=== PATIENT | male | born 1950 | race Caucasian/White ===

== ENCOUNTER 2023-04-05 09:00 | Outpatient (CLI) | payer MEDICARE, SELFPAY ==
[2023-04-05 10:01] LABS: Prostate Specific Antigen 13.7 ng/mL (< OR = 4.0)
== END 2023-04-05 09:01 | disposition home or self-care (01) ==
LOC: CHSLAB 09:07
PROVIDERS: PCP Nurse Practitioner Family; Visit Provider Urology
DX: R97.20 Elevated prostate specific antigen [PSA] (principal)
CPT/HCPCS: 36415; 84153

== ENCOUNTER 2023-12-08 11:02 | Outpatient (CLI) | payer MEDICARE, SELFPAY ==
[2023-12-08 12:22] LABS: Alanine Aminotransferase 30 U/L (16-63); Albumin Level 3.8 g/dL (3.4-5.0); Alkaline Phosphatase 44 U/L (46-116); Anion Gap 8 mmol/L (4-12); Aspartate Amino Transferase 17 U/L (15-37); Bilirubin,Total 0.9 mg/dL (0.00-1.00); Blood Urea Nitrogen 16 mg/dL (7-18); Calcium 8.8 mg/dL (8.5-10.1); Carbon Dioxide 29 mmol/L (21-32); Chloride 104 mmol/L (98-108); Estimated Glomerular Filt Rate 57; Glucose 120 mg/dL (70-99); Osmolality Calculated 294 mOsm/kg (285-295); Potassium 4.4 mmol/L (3.5-5.1); Prostate Specific Antigen 19.1 ng/mL (< OR = 4.0); Sodium 141 mmol/L (136-145); Total Protein 7.1 g/dL (6.4-8.2)
== END 2023-12-08 11:03 | disposition home or self-care (01) ==
LOC: CHSLAB 11:05
PROVIDERS: PCP Nurse Practitioner Family; Visit Provider Urology
DX: R97.20 Elevated prostate specific antigen [PSA] (principal)
CPT/HCPCS: 36415; 80053; 84153

== ENCOUNTER 2024-02-08 08:51 | Outpatient (CLI) | payer MEDICARE, SELFPAY ==
[2024-02-08 09:59] LABS: Prostate Specific Antigen 15.6 ng/mL (< OR = 4.0)
== END 2024-02-08 08:52 | disposition home or self-care (01) ==
LOC: CHSLAB 08:54
PROVIDERS: PCP Nurse Practitioner Family; Visit Provider Urology
DX: R97.20 Elevated prostate specific antigen [PSA] (principal); N40.1 Benign prostatic hyperplasia with lower urinary tract symptoms
CPT/HCPCS: 36415; 84153

== ENCOUNTER 2024-09-07 11:43 | Outpatient (CLI) | payer MEDICARE, SELFPAY ==
[2024-09-07 12:39] LABS: Alanine Aminotransferase 20 U/L (16-63); Albumin Level 3.8 g/dL (3.4-5.0); Alkaline Phosphatase 47 U/L (46-116); Anion Gap 7 mmol/L (4-12); Aspartate Amino Transferase 12 U/L (15-37); Bilirubin,Total 1.1 mg/dL (0.00-1.00); Blood Urea Nitrogen 19 mg/dL (7-18); Calcium 8.7 mg/dL (8.5-10.1); Carbon Dioxide 29 mmol/L (21-32); Chloride 104 mmol/L (98-108); Estimated Glomerular Filt Rate 54; Glucose 170 mg/dL (70-99); Osmolality Calculated 296 mOsm/kg (285-295); Potassium 4.4 mmol/L (3.5-5.1); Prostate Specific Antigen 14.9 ng/mL (< OR = 4.0); Sodium 140 mmol/L (136-145); Total Protein 6.6 g/dL (6.4-8.2)
--- OUTSIDE RECORDS SUMMARY | 2024-09-08 04:43 | XMS_ITS | Data Portability ---
[facility] Address [address] [place] [address] Care Team Providers Care Seed Sorter Name Role Phone YANCY ZUNIGA Primary Care Provider Unavailabl e Assessment No assessment recorded. 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 [address], [place], [address], 08/01/2022 08:17:09 CBC w/ auto diff 2021 022 [facility], [address] [place] [address], [facility] [address], [place], [address], 08/01/2022 08:17:09 CMP, serum or plasma 2021 022 [facility], [address] [place] [address], [facility] 2, [place], [address], 08/01/2022 08:17:08 lipid panel, serum 2021 022 [facility], [address] [facility], [facility] [address], [address], 08/01/2022 08:17:07 PSA, serum or plasma 2022 023 [facility], [address] [facility], [facility] 2, [place], [address], 02/10/2023 04:09:17 CBC w/ auto diff 2022 023 [facility], [address] [place] [address], [facility] 2, [place], [address], 02/09/2023 20:09:42 CMP, serum or plasma 2022 023 [facility], [address] [place] [address], [place], [address], 02/09/2023 20:09:42 lipid panel, serum 2022 023 [facility], [address] [place] [address] 2, [place], [address], 02/09/2023 20:09:41 PSA, total, serum or plasma 2022 023 [facility], [address] [place] [address], [place], [address], 08/06/2023 08:20:30 CBC w/ auto diff 2022 023 [facility], [address] [place] [address], [facility] 2, [place], [address], 08/06/2023 08:20:30 CMP, serum or plasma 2022 023 [facility], [address] [place] [address], [place], [address], 08/06/2023 08:20:29 lipid panel, serum 2022 023 [facility], [address] [place] [address] 2, [place], [address], 08/06/2023 08:20:28 Referral None recorde d. Procedures None recorde d. Surgeries None recorde d. Imaging None recorde d. Medication Orders tamsulo sin 0.4 mg capsule 2022 023 [facility] [place], [address], 02/02/2023 14:40:23 losarta n 50 mg tablet 2022 023 [facility] [address], [address] [place], [address], 02/02/2023 14:40:26 simvast atin 20 mg tablet 2022 023 [facility] [address], [address] [place], [address], 02/15/2024 11:12:56 losarta n 50 mg tablet 2022 023 [facility] [address], [address] [place], [address], 08/05/2023 12:16:25 simvast atin 20 mg tablet 2022 024 [facility] [address], [address] [place], [address], 02/15/2024 11:13:16 losarta n 50 mg tablet 2023 024 [facility] [address], [address] [place], [address], 02/15/2024 11:53:03 simvast atin 20 mg tablet 2023 024 [facility] [address] [place], [address], 02/15/2024 11:53:04 Patient TargetsNo targets recorded. Patient Instructions Encounter Date Encounter Id Patient Instructions Last Modified By Organization Details Last Modified Time 06/25/2022 [id number] influenza (flu) vaccine: care instructions Not available 06/25/2022 17:08:28 07/31/2022 [id number] prostate biopsy: about this test Not available 07/31/2022 15:49:27 When You Want to Lose Weight: Care Instructions Not available 07/31/2022 15:49:27 learning about high blood pressure Not available 07/31/2022 15:49:27 high cholesterol : care instructions Not available 07/31/2022 15:49:27 Cont on current medications. Not available 07/31/2022 15:45:18 f/u 6 months DWP barriers to care: none Not available 07/31/2022 15:45:18 02/02/2023 [id number] prostate biopsy: about this test Not available 02/02/2023 14:39:08 A healthy lifestyle: care instructions Not available 02/02/2023 14:39:08 learning about high blood pressure Not available 02/02/2023 14:39:08 high cholesterol : care instructions Not available 02/02/2023 14:39:08 Check blood pressure daily and record findings; bring to F/U appointment. [place] blood pressure is the top number below 150 and the bottom number below 90. If you experience any side effects of medication, call the office. Follow a low salt diet, drink at least 8-10 8oz glasses of water a day, exercise most days of the week. Not available 02/02/2023 17:54:16 f/u 6 months DWP barriers to care: none Not available 02/02/2023 14:16:11 08/05/2023 [id number] influenza (flu) vaccine: care instructions Not available 08/05/2023 12:16:36 A healthy lifestyle: care instructions Not available 08/05/2023 12:16:02 learning about high blood pressure Not available 08/05/2023 12:16:02 high cholesterol : care instructions Not available 08/05/2023 12:16:02 Check blood pressure daily and record findings; bring to F/U appointment. [place] blood pressure is the top number below 150 and the bottom number below 90. If you experience any side effects of medication, call the office. Follow a low salt diet, drink at least 8-10 8oz glasses of water a day, exercise most days of the week. Not available 08/05/2023 12:06:51 f/u 6 months DWP barriers to care: none Not available 08/05/2023 12:06:52 02/15/2024 [id number] A healthy lifestyle: care instructions Not available 02/15/2024 11:52:55 back care and preventing injuries: care instructions Not available 02/15/2024 11:52:55 learning about high blood pressure Not available 02/15/2024 11:52:55 high cholesterol : care instructions Not available 02/15/2024 11:52:55 Check blood pressure daily and record findings; bring to F/U appointment. [place] blood pressure is the top number below 150 and the bottom number below 90. If you experience any side effects of medication, call the office. Follow a low salt diet, drink at least 8-10 8oz glasses of water a day, exercise most days of the week. Not available 02/15/2024 11:37:03 f/u 6 months DWP barriers to care: none Not available 02/15/2024 11:37:04 Reason for Referral None Reported. Results Created Date Observation Date Name Description Value Unit Range Abnormal Flag Note LastModifiedBy Organization Detail LastModifiedTime 07/31/20 22 08/01/2022 LIPID PANEL cholesterol, total 236 mg/dL 100-19 9 above high normal Not Available [facility] ([facility]) [address], [place], [address], 08/01/2022 08:17:07 07/31/20 22 08/01/2022 LIPID PANEL triglyceride s 153 mg/dL 0-149 above high normal Not Available [facility] ([facility]) [address], [place], [address], 08/01/2022 08:17:07 07/31/20 22 08/01/2022 LIPID PANEL HDL cholesterol 44 mg/dL >39 Not Available [facility]) [address], [place], [address], 08/01/2022 08:17:07 07/31/20 22 08/01/2022 LIPID PANEL VLDL cholesterol juany 28 mg/dL 5-40 Not Available [facility] ([facility]) [address] [place], [address], 08/01/2022 08:17:07 07/31/20 22 08/01/2022 LIPID PANEL LDL chol calc ([facility]) 164 mg/dL 0-99 above high normal Not Available [facility] ([facility]) [address] [place], [address], 08/01/2022 08:17:07 07/31/20 22 08/01/2022 COMP. METAB OLIC PANEL (14) glucose 141 mg/dL 70-99 above high normal Not Available [facility] ([facility]) [address] [place], [address], 08/01/2022 08:17:08 07/31/20 22 08/01/2022 COMP. METAB OLIC PANEL (14) BUN 21 mg/dL 8-27 Not Available [facility] ([facility]) [address] [place], [address], 08/01/2022 08:17:08 07/31/20 22 08/01/2022 COMP. METAB OLIC PANEL (14) creatinine 1.21 mg/dL 0.76-1 .27 Not Available [facility] ([facility]) [address] [place], [address], 08/01/2022 08:17:08 07/31/20 22 08/01/2022 COMP. METAB OLIC PANEL (14) eGFR 64 mL/mi n/1.7 3 >59 Not Available [facility] ([facility]) [address] [place], [address], 08/01/2022 08:17:08 07/31/20 22 08/01/2022 COMP. METAB OLIC PANEL (14) BUN/creatini ne ratio 17 10-24 Not Available [facility] ([facility]) [address] [place], [address], 08/01/2022 08:17:08 07/31/20 22 08/01/2022 COMP. METAB OLIC PANEL (14) sodium 142 mmol/ L 134-14 4 Not Available [facility] ([facility]) [address] [place], [address], 08/01/2022 08:17:08 07/31/20 22 08/01/2022 COMP. METAB OLIC PANEL (14) potassium 4.7 mmol/ L 3.5-5. 2 Not Available [facility] ([facility]) [address] [place], [address], 08/01/2022 08:17:08 07/31/20 22 08/01/2022 COMP. METAB OLIC PANEL (14) chloride 102 mmol/ L 96-106 Not Available [facility] ([facility]) [address] [place], [address], 08/01/2022 08:17:08 07/31/20 22 08/01/2022 COMP. METAB OLIC PANEL (14) carbon dioxide, total 24 mmol/ L 20-29 Not Available [facility] ([facility]) [address] [place], [address], 08/01/2022 08:17:08 07/31/20 22 08/01/2022 COMP. METAB OLIC PANEL (14) calcium 9.1 mg/dL 8.6-10 .2 Not Available [facility] ([facility]) [address] [place], [address], 08/01/2022 08:17:08 07/31/20 22 08/01/2022 COMP. METAB OLIC PANEL (14) protein, total 6.8 g/dL 6.0-8. 5 Not Available [facility] ([facility]) [address] [place], [address], 08/01/2022 08:17:08 07/31/20 22 08/01/2022 COMP. METAB OLIC PANEL (14) albumin 4.2 g/dL 3.7-4. 7 Not Available [facility] ([facility]) [address] [place], [address], 08/01/2022 08:17:08 07/31/20 22 08/01/2022 COMP. METAB OLIC PANEL (14) globulin, total 2.6 g/dL 1.5-4. 5 Not Available [facility] ([facility]) [address] [place], [address], 08/01/2022 08:17:08 07/31/20 22 08/01/2022 COMP. METAB OLIC PANEL (14) A/G ratio 1.6 1.2-2. 2 Not Available [facility] ([facility]) [address] [place], [address], 08/01/2022 08:17:08 07/31/20 22 08/01/2022 COMP. METAB OLIC PANEL (14) bilirubin, total 0.4 mg/dL 0.0-1. 2 Not Available [facility] ([facility]) [address] [place], [address], 08/01/2022 08:17:08 07/31/20 22 08/01/2022 COMP. METAB OLIC PANEL (14) alkaline phosphatase 53 IU/L 44-121 Not Available [facility] ([facility]) [address] [place], [address], 08/01/2022 08:17:08 07/31/20 22 08/01/2022 COMP. METAB OLIC PANEL (14) AST (SGOT) 17 IU/L 0-40 Not Available [facility] ([facility]) [address] [place], [address], 08/01/2022 08:17:08 07/31/20 22 08/01/2022 COMP. METAB OLIC PANEL (14) ALT (SGPT) 18 IU/L 0-44 Not Available [facility] ([facility]) [address], [place], [address], 08/01/2022 08:17:08 07/31/20 22 07/31/2022 PSA TOTAL (REFL EX TO FREE) reflex criteria Commen t The perce nt free PSA is perfo rmed on a refle x basis only when the total PSA is betwe en 4.0 and 10.0 ng/mL . Not Available [facility] ([facility]) [address], [place], [address], 08/01/2022 08:17:08 07/31/20 22 08/01/2022 PSA TOTAL (REFL EX TO FREE) prostate specific Ag 13.6 NG/mL 0.0-4. 0 above high normal [place] ECLIA metho dolog y. Accor ding to the Ameri can [employer] g[employer] iatio n, Serum PSA shoul d decre ase and remai n at undet ectab le level s after radic al prost atect mirtha. The AUA defin es bioch emica l recur rence as an initi al PSA value 0.2 ng/mL or great er follo wed by a subse quent confi rmato ry PSA value 0.2 ng/mL or great er. Value s obtai tiffanie with diffe rent assay metho ds or kits canno t be used inter munoz eably . Resul ts canno t be inter prete d as absol [place] evide nce of the prese nce or absen ce of mary kate martinez se. Not Available [facility] ([facility]) [address], [place], [address], 08/01/2022 08:17:08 07/31/20 22 08/01/2022 CBC WITH DIFFE RENTI AL/PL ATELE T WBC 7.9 x10e3 /uL 3.4-10 .8 Not Available [facility] ([facility]) [address], [place], [address], 08/01/2022 08:17:09 07/31/20 22 08/01/2022 CBC WITH DIFFE RENTI AL/PL ATELE T RBC 4.81 x10e6 /uL 4.14-5 .80 Not Available [facility] ([facility]) [address], [place], [address], 08/01/2022 08:17:09 07/31/20 22 08/01/2022 CBC WITH DIFFE RENTI AL/PL ATELE T hemoglobin 14.3 g/dL 13.0-1 7.7 Not Available [facility] ([facility]) [address], [place], [address], 08/01/2022 08:17:09 07/31/20 22 08/01/2022 CBC WITH DIFFE RENTI AL/PL ATELE T hematocrit 42.3 % 37.5-5 1.0 Not Available [facility] ([facility]) [address], [place], [address], 08/01/2022 08:17:09 07/31/20 22 08/01/2022 CBC WITH DIFFE RENTI AL/PL ATELE T MCV 88 fL 79-97 Not Available [facility] ([facility]) [address] [place], [address], 08/01/2022 08:17:09 07/31/20 22 08/01/2022 CBC WITH DIFFE RENTI AL/PL ATELE T MCH 29.7 pg 26.6-3 3.0 Not Available [facility] ([facility]) [address] [place], [address], 08/01/2022 08:17:09 07/31/20 22 08/01/2022 CBC WITH DIFFE RENTI AL/PL ATELE T MCHC 33.8 g/dL 31.5-3 5.7 Not Available [facility] ([facility]) [address], [place], [address], 08/01/2022 08:17:09 07/31/20 22 08/01/2022 CBC WITH DIFFE RENTI AL/PL ATELE T RDW 11.4 % 11.6-1 5.4 below low normal Not Available [facility] ([facility]) [address], [place], [address], 08/01/2022 08:17:09 07/31/20 22 08/01/2022 CBC WITH DIFFE RENTI AL/PL ATELE T platelets 231 x10e3 /uL 150-45 0 Not Available [facility] ([facility]) [address], [place], [address], 08/01/2022 08:17:09 07/31/20 22 08/01/2022 CBC WITH DIFFE RENTI AL/PL ATELE T neutrophils 66 % notest ab. Not Available [facility] ([facility]) [address], [place], [address], 08/01/2022 08:17:09 07/31/20 22 08/01/2022 CBC WITH DIFFE RENTI AL/PL ATELE T lymphs 24 % notest ab. Not Available [facility] ([facility]) [address], [place], [address], 08/01/2022 08:17:09 07/31/20 22 08/01/2022 CBC WITH DIFFE RENTI AL/PL ATELE T monocytes 5 % notest ab. Not Available [facility] ([facility]) [address], [place], [address], 08/01/2022 08:17:09 07/31/20 22 08/01/2022 CBC WITH DIFFE RENTI AL/PL ATELE T eos 3 % notest ab. Not Available [facility] ([facility]) [address], [place], [address], 08/01/2022 08:17:09 07/31/20 22 08/01/2022 CBC WITH DIFFE RENTI AL/PL ATELE T basos 1 % notest ab. Not Available [facility] ([facility]) [address], [place], [address], 08/01/2022 08:17:09 07/31/20 22 08/01/2022 CBC WITH DIFFE RENTI AL/PL ATELE T neutrophils (absolute) 5.3 x10e3 /uL 1.4-7. 0 Not Available [facility] ([facility]) [address] [place], [address], 08/01/2022 08:17:09 07/31/20 22 08/01/2022 CBC WITH DIFFE RENTI AL/PL ATELE T lymphs (absolute) 1.9 x10e3 /uL 0.7-3. 1 Not Available [facility] ([facility]) [address], [place], [address], 08/01/2022 08:17:09 07/31/20 22 08/01/2022 CBC WITH DIFFE RENTI AL/PL ATELE T monocytes(ab solute) 0.4 x10e3 /uL 0.1-0. 9 Not Available [facility] ([facility]) [address] [place], [address], 08/01/2022 08:17:09 07/31/20 22 08/01/2022 CBC WITH DIFFE RENTI AL/PL ATELE T eos (absolute) 0.2 x10e3 /uL 0.0-0. 4 Not Available [facility] ([facility]) [address] [place], [address], 08/01/2022 08:17:09 07/31/20 22 08/01/2022 CBC WITH DIFFE RENTI AL/PL ATELE T baso (absolute) 0.0 x10e3 /uL 0.0-0. 2 Not Available [facility] ([facility]) [address], [place], [address], 08/01/2022 08:17:09 07/31/20 22 08/01/2022 CBC WITH DIFFE RENTI AL/PL ATELE T immature granulocytes 1 % notest ab. Not Available [facility] ([facility]) [address], [place], [address], 08/01/2022 08:17:09 07/31/20 22 08/01/2022 CBC WITH DIFFE RENTI AL/PL ATELE T immature grans (abs) 0.1 x10e3 /uL 0.0-0. 1 Not Available [facility] ([facility]) [address], [place], [address], 08/01/2022 08:17:09 02/10/20 23 02/09/2023 LIPID PANEL cholesterol, total 197.8 mg/dL 140.0- 200.0 Not Available [facility] [address] [place], [address], 02/09/2023 20:09:41 02/10/20 23 02/09/2023 LIPID PANEL triglyceride s 76 mg/dL <=150 Not Available [facility] [address] [place], [address], 02/09/2023 20:09:41 02/10/20 23 02/09/2023 LIPID PANEL HDL cholesterol 69.8 mg/dL 40.0-1 00.0 Not Available [facility] [address] [place], [address], 02/09/2023 20:09:41 02/10/20 23 02/09/2023 LIPID PANEL VLDL cholesterol juany 15.20 mg/dL 5.00-4 0.00 Not Available [facility] [address] [place], [address], 02/09/2023 20:09:41 02/10/20 23 02/09/2023 LIPID PANEL LDL chol calc ([facility]) 114.3 mg/dL 0.0-99 .0 above high normal Not Available [facility] [address] [place], [address], 02/09/2023 20:09:41 02/10/20 23 02/09/2023 COMP. METAB OLIC PANEL (14) glucose 105 mg/dL 65-99 above high normal ANION GP 16.0 mmol/ L N OSMOL 280.0 mOsM/ L N REFER ENCE RANGE : 275.0 -301. 0 Not Available [facility] [address] [place] [address], [address], 02/09/2023 20:09:42 02/10/20 23 02/09/2023 COMP. METAB OLIC PANEL (14) BUN 19 mg/dL 8-26 Not Available [facility] [address] [place] [address], [address], 02/09/2023 20:09:42 02/10/20 23 02/09/2023 COMP. METAB OLIC PANEL (14) creatinine 1.00 mg/dL 0.50-1 .40 Not Available [facility] [address] [place], [address], 02/09/2023 20:09:42 02/10/20 23 02/09/2023 COMP. METAB OLIC PANEL (14) eGFR 79 mL/mi n/1.7 3 >=60 Not Available [facility] [address] [place], [address], 02/09/2023 20:09:42 02/10/20 23 02/09/2023 COMP. METAB OLIC PANEL (14) BUN/creatini ne ratio 19.1 Not Available [facility] [address] [place], [address], 02/09/2023 20:09:42 02/10/20 23 02/09/2023 COMP. METAB OLIC PANEL (14) sodium 139.0 mmol/ L 136.0- 144.0 Not Available [facility] [address] [place], [address], 02/09/2023 20:09:42 02/10/20 23 02/09/2023 COMP. METAB OLIC PANEL (14) potassium 4.6 mmol/ L 3.5-5. 3 Not Available [facility] [address] [place], [address], 02/09/2023 20:09:42 02/10/20 23 02/09/2023 COMP. METAB OLIC PANEL (14) chloride 102 mmol/ l 101-11 1 Not Available [facility] [address] [place] [address], [address], 02/09/2023 20:09:42 02/10/20 23 02/09/2023 COMP. METAB OLIC PANEL (14) carbon dioxide, total 25.1 mmol/ L 21.0-3 2.0 Not Available [facility] [address] [place], [address], 02/09/2023 20:09:42 02/10/20 23 02/09/2023 COMP. METAB OLIC PANEL (14) calcium 9.5 mg/dL 8.2-10 .0 Not Available [facility] [address] [place], [address], 02/09/2023 20:09:42 02/10/20 23 02/09/2023 COMP. METAB OLIC PANEL (14) protein, total 7.1 g/dL 6.7-8. 2 Not Available [facility] [address] [place], [address], 02/09/2023 20:09:42 02/10/20 23 02/09/2023 COMP. METAB OLIC PANEL (14) albumin 4.4 g/dL 3.5-5. 5 Not Available [facility] [address] [place] [address], [address], 02/09/2023 20:09:42 02/10/20 23 02/09/2023 COMP. METAB OLIC PANEL (14) globulin, total 2.7 g/dL 1.5-4. 5 Not Available [facility] [address] [place], [address], 02/09/2023 20:09:42 02/10/20 23 02/09/2023 COMP. METAB OLIC PANEL (14) A/G ratio 1.6 Not Available [facility] Department [address] [place] [address], [address], 02/09/2023 20:09:42 02/10/20 23 02/09/2023 COMP. METAB OLIC PANEL (14) bilirubin, total 1.0 mg/dL 0.0-1. 2 Not Available [facility] [address] [place] [address], [address], 02/09/2023 20:09:42 02/10/20 23 02/09/2023 COMP. METAB OLIC PANEL (14) alkaline phosphatase 50.7 IU/L 42.0-1 21.0 Not Available [facility] [address] [place] [address], [address], 02/09/2023 20:09:42 02/10/20 23 02/09/2023 COMP. METAB OLIC PANEL (14) AST (SGOT) 15.1 U/L 10.0-4 2.0 Not Available [facility] [address] [place], [address], 02/09/2023 20:09:42 02/10/20 23 02/09/2023 COMP. METAB OLIC PANEL (14) ALT (SGPT) 14.4 U/L 10.0-6 0.0 Not Available [facility] [address] [place] [address], [address], 02/09/2023 20:09:42 02/10/20 23 02/09/2023 CBC WITH DIFFE RENTI AL/PL ATELE T WBC 6.4 K/uL 3.4-10 .8 Not Available [facility] [address] [place], [address], 02/09/2023 20:09:42 02/10/20 23 02/09/2023 CBC WITH DIFFE RENTI AL/PL ATELE T RBC 5.3 M/uL 4.5-6. 3 Not Available [facility] [address] [place], [address], 02/09/2023 20:09:42 02/10/20 23 02/09/2023 CBC WITH DIFFE RENTI AL/PL ATELE T hemoglobin 15.9 g/dL 13.5-1 7.5 Not Available [facility] [address] [place], [address], 02/09/2023 20:09:42 02/10/20 23 02/09/2023 CBC WITH DIFFE RENTI AL/PL ATELE T hematocrit 48.9 % 40.0-5 2.0 Not Available [facility] [address] [place], [address], 02/09/2023 20:09:42 02/10/20 23 02/09/2023 CBC WITH DIFFE RENTI AL/PL ATELE T MCV 92 fL 80-95 Not Available [facility] [address] [place], [address], 02/09/2023 20:09:42 02/10/20 23 02/09/2023 CBC WITH DIFFE RENTI AL/PL ATELE T MCH 30 pg 27-32 Not Available [facility] [address] [place], [address], 02/09/2023 20:09:42 02/10/20 23 02/09/2023 CBC WITH DIFFE RENTI AL/PL ATELE T MCHC 33 g/dL 32-36 Not Available [facility] [address] [place], [address], 02/09/2023 20:09:42 02/10/20 23 02/09/2023 CBC WITH DIFFE RENTI AL/PL ATELE T RDW 12.1 % 11.5-1 4.5 Not Available [facility] [address] [place], [address], 02/09/2023 20:09:42 02/10/20 23 02/09/2023 CBC WITH DIFFE RENTI AL/PL ATELE T platelets 170 K/uL 155-37 9 MPV 11.4 FL 8.9-1 2.7 N Not Available [facility] [address] [place], [address], 02/09/2023 20:09:42 02/10/20 23 02/09/2023 CBC WITH DIFFE RENTI AL/PL ATELE T neutrophils 58.1 % 40.0-7 4.0 Not Available [facility] [address] [place], [address], 02/09/2023 20:09:42 02/10/20 23 02/09/2023 CBC WITH DIFFE RENTI AL/PL ATELE T lymphs 28.7 % 14.0-4 6.0 Not Available [facility] [address] [place], [address], 02/09/2023 20:09:42 02/10/20 23 02/09/2023 CBC WITH DIFFE RENTI AL/PL ATELE T monocytes 8.2 % 4.0-12 .0 Not Available [facility] [address] [place], [address], 02/09/2023 20:09:42 02/10/20 23 02/09/2023 CBC WITH DIFFE RENTI AL/PL ATELE T eos 4 % 0-5 Not Available [facility] [address] [place], [address], 02/09/2023 20:09:42 02/10/20 23 02/09/2023 CBC WITH DIFFE RENTI AL/PL ATELE T basos 0.6 % 0.0-1. 0 Not Available [facility] Department [address] [place], [address], 02/09/2023 20:09:42 02/10/20 23 02/09/2023 CBC WITH DIFFE RENTI AL/PL ATELE T neutrophils (absolute) 3.7 K/uL 1.4-7. 0 Not Available [facility] Department [address] [place], [address], 02/09/2023 20:09:42 02/10/2002/09/2023 CBC WITH DIFFE RENTI AL/PL ATELE T lymphs (absolute) 1.8 K/uL 0.7-3. 1 Not Available [facility] Department [address] [place], [address], 02/09/2023 20:09:42 02/10/20 23 02/09/2023 CBC WITH DIFFE RENTI AL/PL ATELE T monocytes(ab solute) 0.5 K/uL 0.1-0. 9 Not Available [facility] Department [address] [place], [address], 02/09/2023 20:09:42 02/10/20 23 02/09/2023 CBC WITH DIFFE RENTI AL/PL ATELE T eos (absolute) 0.3 K/uL 0.0-0. 4 Not Available [facility] Department [address] [place], [address], 02/09/2023 20:09:42 02/10/2002/09/2023 CBC WITH DIFFE RENTI AL/PL ATELE T baso (absolute) 0.0 K/uL 0.0-0. 3 Not Available [facility] [address], [place], [address], 02/09/2023 20:09:42 02/10/20 23 02/09/2023 CBC WITH DIFFE RENTI AL/PL ATELE T immature granulocytes 0.5 % Not Available [facility] Department [address] [place], [address], 02/09/2023 20:09:42 02/10/20 23 02/09/2023 CBC WITH DIFFE RENTI AL/PL ATELE T immature grans (abs) 0.0 K/uL Not Available [facility] Department [address] [place], [address], 02/09/2023 20:09:42 02/10/2002/09/2023 CBC WITH DIFFE RENTI AL/PL ATELE T NRBC 0 % Not Available [facility] Department [address] [place], [address], 02/09/2023 20:09:42 02/10/2002/09/2023 PSA TOTAL (REFL EX TO FREE) reflex criteria COMMEN T The perce nt free PSA is perfo rmed on a refle x basis only when the total PSA is betwe en 4.0 and 10.0 ng/mL . Not Available [facility] ([facility]) [address], [place], [address], 02/10/2023 04:09:16 02/10/2002/10/2023 PSA TOTAL (REFL EX TO FREE) prostate specific Ag 11.3 NG/mL 0.0-4. 0 above high normal Kerry ECLIA metho dolog y. Accor ding to the Ameri can Urolo gical Assoc iatio n, Serum PSA shoul d decre ase and remai n at undet ectab le level s after radic al prost atect mirtha. The AUA defin es bioch emica l recur rence as an initi al PSA value 0.2 ng/mL or great er follo wed by a subse quent confi rmato ry PSA value 0.2 ng/mL or great er. Value s obtai tiffanie with diffe rent assay metho ds or kits canno t be used inter alexander landonbly . Resul ts canno t be inter prete d as absol [place] evide nce of the prese nce or absen ce of mary kate martinez . Not Available [facility] ([facility]) [address] [place], [address], 02/10/2023 04:09:16 08/05/20 23 08/06/2023 LIPID PANEL cholesterol, total 193 mg/dL 100-19 9 Not Available [facility] ([facility]) [address] [place], [address], 08/06/2023 08:20:28 08/05/20 23 08/06/2023 LIPID PANEL triglyceride s 58 mg/dL 0-149 Not Available [facility] ([facility]) [address] [place], [address], 08/06/2023 08:20:28 08/05/20 23 08/06/2023 LIPID PANEL HDL cholesterol 61 mg/dL >39 Not Available [facility] ([facility]) [address] [place], [address], 08/06/2023 08:20:28 08/05/20 23 08/06/2023 LIPID PANEL VLDL cholesterol juany 11 mg/dL 5-40 Not Available [facility] ([facility]) [address] [place], [address], 08/06/2023 08:20:28 08/05/20 23 08/06/2023 LIPID PANEL LDL chol calc ([facility]) 121 mg/dL 0-99 above high normal Not Available [facility] ([facility]) [address] [place], [address], 08/06/2023 08:20:28 08/05/20 23 08/06/2023 COMP. METAB OLIC PANEL (14) glucose 108 mg/dL 70-99 above high normal Not Available [facility] ([facility]) [address] [place], [address], 08/06/2023 08:20:29 08/05/20 23 08/06/2023 COMP. METAB OLIC PANEL (14) BUN 17 mg/dL 8-27 Not Available [facility] ([facility]) [address], [place], [address], 08/06/2023 08:20:29 08/05/20 23 08/06/2023 COMP. METAB OLIC PANEL (14) creatinine 1.06 mg/dL 0.76-1 .27 Not Available [facility] ([facility]) [address] [place], [address], 08/06/2023 08:20:29 08/05/20 23 08/06/2023 COMP. METAB OLIC PANEL (14) eGFR 74 mL/mi n/1.7 3 >59 Not Available [facility] ([facility]) [address], [place], [address], 08/06/2023 08:20:29 08/05/20 23 08/06/2023 COMP. METAB OLIC PANEL (14) BUN/creatini ne ratio 16 10-24 Not Available [facility] ([facility]) [address], [place], [address], 08/06/2023 08:20:29 08/05/20 23 08/06/2023 COMP. METAB OLIC PANEL (14) sodium 140 mmol/ L 134-14 4 Not Available [facility] ([facility]) [address], [place], [address], 08/06/2023 08:20:29 08/05/20 23 08/06/2023 COMP. METAB OLIC PANEL (14) potassium 4.4 mmol/ L 3.5-5. 2 Not Available [facility] ([facility]) [address], [place], [address], 08/06/2023 08:20:29 08/05/20 23 08/06/2023 COMP. METAB OLIC PANEL (14) chloride 103 mmol/ L 96-106 Not Available [facility] ([facility]) [address] [place], [address], 08/06/2023 08:20:29 08/05/20 23 08/06/2023 COMP. METAB OLIC PANEL (14) carbon dioxide, total 25 mmol/ L 20- Not Available [facility] ([facility]) [address] [place], [address], 08/06/2023 08:20:29 08/05/20 23 08/06/2023 COMP. METAB OLIC PANEL (14) calcium 9.1 mg/dL 8.6-10 .2 Not Available [facility] ([facility]) [address] [place], [address], 08/06/2023 08:20:29 08/05/20 23 08/06/2023 COMP. METAB OLIC PANEL (14) protein, total 6.8 g/dL 6.0-8. 5 Not Available [facility] ([facility]) [address] [place], [address], 08/06/2023 08:20:29 08/05/20 23 08/06/2023 COMP. METAB OLIC PANEL (14) albumin 4.2 g/dL 3.8-4. 8 Not Available [facility] ([facility]) [address] [place], [address], 08/06/2023 08:20:29 08/05/20 23 08/06/2023 COMP. METAB OLIC PANEL (14) globulin, total 2.6 g/dL 1.5-4. 5 Not Available [facility] ([facility]) [address] [place], [address], 08/06/2023 08:20:29 08/05/20 23 08/06/2023 COMP. METAB OLIC PANEL (14) A/G ratio 1.6 1.2-2. 2 Not Available [facility] ([facility]) [address] [place], [address], 08/06/2023 08:20:29 08/05/20 23 08/06/2023 COMP. METAB OLIC PANEL (14) bilirubin, total 1.0 mg/dL 0.0-1. 2 Not Available [facility] ([facility]) [address] [place], [address], 08/06/2023 08:20:29 08/05/20 23 08/06/2023 COMP. METAB OLIC PANEL (14) alkaline phosphatase 48 IU/L 44-121 Not Available [facility] ([facility]) [address], [place], [address], 08/06/2023 08:20:29 08/05/20 23 08/06/2023 COMP. METAB OLIC PANEL (14) AST (SGOT) 14 IU/L 0-40 Not Available [facility] ([facility]) [address], [place], [address], 08/06/2023 08:20:29 08/05/20 23 08/06/2023 COMP. METAB OLIC PANEL (14) ALT (SGPT) 10 IU/L 0-44 Not Available [facility] ([facility]) [address] [place], [address], 08/06/2023 08:20:29 08/05/20 23 08/06/2023 CBC WITH DIFFE RENTI AL/PL ATELE T WBC 6.5 x10e3 /uL 3.4-10 .8 Not Available [facility] ([facility]) [address], [place], [address], 08/06/2023 08:20:29 08/05/20 23 08/06/2023 CBC WITH DIFFE RENTI AL/PL ATELE T RBC 4.94 x10e6 /uL 4.14-5 .80 Not Available [facility] ([facility]) [address], [place], [address], 08/06/2023 08:20:29 08/05/20 23 08/06/2023 CBC WITH DIFFE RENTI AL/PL ATELE T hemoglobin 14.9 g/dL 13.0-1 7.7 Not Available [facility] ([facility]) [address], [place], [address], 08/06/2023 08:20:29 08/05/20 23 08/06/2023 CBC WITH DIFFE RENTI AL/PL ATELE T hematocrit 45.0 % 37.5-5 1.0 Not Available [facility] ([facility]) [address], [place], [address], 08/06/2023 08:20:29 08/05/20 23 08/06/2023 CBC WITH DIFFE RENTI AL/PL ATELE T MCV 91 fL 79-97 Not Available [facility] ([facility]) [address] [place], [address], 08/06/2023 08:20:29 08/05/20 23 08/06/2023 CBC WITH DIFFE RENTI AL/PL ATELE T MCH 30.2 pg 26.6-3 3.0 Not Available [facility] ([facility]) [address] [place], [address], 08/06/2023 08:20:29 08/05/20 23 08/06/2023 CBC WITH DIFFE RENTI AL/PL ATELE T MCHC 33.1 g/dL 31.5-3 5.7 Not Available [facility] ([facility]) [address] [place], [address], 08/06/2023 08:20:29 08/05/20 23 08/06/2023 CBC WITH DIFFE RENTI AL/PL ATELE T RDW 11.3 % 11.6-1 5.4 below low normal Not Available [facility] ([facility]) [address], [place], [address], 08/06/2023 08:20:29 08/05/20 23 08/06/2023 CBC WITH DIFFE RENTI AL/PL ATELE T platelets 158 x10e3 /uL 150-45 0 Not Available [facility] ([facility]) [address], [place], [address], 08/06/2023 08:20:29 08/05/20 23 08/06/2023 CBC WITH DIFFE RENTI AL/PL ATELE T neutrophils 68 % notest ab. Not Available [facility] ([facility]) [address], [place], [address], 08/06/2023 08:20:29 08/05/20 23 08/06/2023 CBC WITH DIFFE RENTI AL/PL ATELE T lymphs 21 % notest ab. Not Available [facility] ([facility]) [address], [place], [address], 08/06/2023 08:20:29 08/05/20 23 08/06/2023 CBC WITH DIFFE RENTI AL/PL ATELE T monocytes 7 % notest ab. Not Available [facility] ([facility]) [address], [place], [address], 08/06/2023 08:20:29 08/05/20 23 08/06/2023 CBC WITH DIFFE RENTI AL/PL ATELE T eos 3 % notest ab. Not Available [facility] ([facility]) [address], [place], [address], 08/06/2023 08:20:29 08/05/20 23 08/06/2023 CBC WITH DIFFE RENTI AL/PL ATELE T basos 1 % notest ab. Not Available [facility] ([facility]) [address], [place], [address], 08/06/2023 08:20:29 08/05/20 23 08/06/2023 CBC WITH DIFFE RENTI AL/PL ATELE T neutrophils (absolute) 4.4 x10e3 /uL 1.4-7. 0 Not Available [facility] ([facility]) [address], [place], [address], 08/06/2023 08:20:29 08/05/20 23 08/06/2023 CBC WITH DIFFE RENTI AL/PL ATELE T lymphs (absolute) 1.4 x10e3 /uL 0.7-3. 1 Not Available [facility] ([facility]) [address] [place], [address], 08/06/2023 08:20:29 08/05/20 23 08/06/2023 CBC WITH DIFFE RENTI AL/PL ATELE T monocytes(ab solute) 0.5 x10e3 /uL 0.1-0. 9 Not Available [facility] ([facility]) [address] [place], [address], 08/06/2023 08:20:29 08/05/20 23 08/06/2023 CBC WITH DIFFE RENTI AL/PL ATELE T eos (absolute) 0.2 x10e3 /uL 0.0-0. 4 Not Available [facility] ([facility]) [address] [place], [address], 08/06/2023 08:20:29 08/05/20 23 08/06/2023 CBC WITH DIFFE RENTI AL/PL ATELE T baso (absolute) 0.0 x10e3 /uL 0.0-0. 2 Not Available [facility] ([facility]) [address] [place], [address], 08/06/2023 08:20:29 08/05/20 23 08/06/2023 CBC WITH DIFFE RENTI AL/PL ATELE T immature granulocytes 0 % notest ab. Not Available [facility] ([facility]) [address], [place], [address], 08/06/2023 08:20:29 08/05/20 23 08/06/2023 CBC WITH DIFFE RENTI AL/PL ATELE T immature grans (abs) 0.0 x10e3 /uL 0.0-0. 1 Not Available [facility] ([facility]) [address], [place], [address], 08/06/2023 08:20:29 08/05/20 23 08/06/2023 PROST ATE-S PECIF IC AG prostate specific Ag 12.5 NG/mL 0.0-4. 0 above high normal Kerry ECLIA metho dolog y. Accor ding to the Ameri can Urolo gical Assoc iatio n, Serum PSA shoul d decre ase and remai n at undet ectab le level s after radic al prost atect mirtha. The AUA defin es bioch emica l recur rence as an initi al PSA value 0.2 ng/mL or great er follo wed by a subse quent confi rmato ry PSA value 0.2 ng/mL or great er. Value s obtai tiffanie with diffe rent assay metho ds or kits canno t be used inter [place] . Resul ts canno t be inter prete d as absol [place] evide nce of the prese nce or absen ce of mary kate martinez se. Not Available [facility] ([facility]) [address], [place], [address], 08/06/2023 08:20:30 08/05/20 23 05/11/2023 US, prost ate No observ ation record ed. [facility] [address], [place], [address], 02/15/2024 11:53:13 Result Notes None recorded. Problems Name Problem SNOMED Code Status Onset Date Resolution Date Notes Provider Name and Address Organization Details Recorded Time [facility] jaleesa hyperten paril 43880712 Active Tamera Parr PA-C Attn: Accountdonna g,[address] [facility], [place], [address], [place] - [facility] 8 11:25:46 Hyperlip idemia 49110169 Active deferred chol med 06/2018 Tamera Parr PA-C Attn: Accountdonna g,[address] [facility], [place], [address], [place] [facility] 8 10:33:58 Prostate specific antigen above referenc e range 648797024 Active Tamera Parr PA-C Attn: Accountdonna g,[address] [facility], [place], [address], [place] [facility] 8 11:26:15 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 148968223 Active Tamera Parr PA-C Attn: Accountdonna g,[address] [facility], [place], [address], [place] [facility] 8 11:26:34 Hearing loss 33496278 Completed 08/18/2018 Tamera Parr PA-C Attn: Rg briggs,[address] [facility], [place], [address], [place] [facility] 9 08:58:54 Illitera cy 939197967 Active 2018 Tamera Parr PA-C Attn: Accountdonna g,[address] [facility], [place], [address], [place] [facility] 9 08:58:44 Bilatera l hearing loss 31274820 Active 2018 Tamera Parr PA-C Attn: Accountdonna g,[address] [facility], [place], [address], [place] [facility] 9 08:58:47 [place] ht 918500213 Active 2019 Yancy Zuniga ADMINISTRATIVE VOLUNTEER, CHEMICAL PRODUCTION MACHINE OPERATOR-C Attn: Accountin g,[address] [facility], [place], [address], [place] [facility] 0 12:40:00 Perforat ion of tympanic membrane 75892095 Active 2020 Yancy Zuniga APN, CHEMICAL PRODUCTION MACHINE OPERATOR-C Attn: Rg briggs,[address] [facility], [place], [address], [facility] - SI 1 12:19:34 Low back pain 463767803 Active 2023 Yancy Zuniga APN, CHEMICAL PRODUCTION MACHINE OPERATOR-C Attn: Rg briggs,[address] [facility], [place], [address], [facility] - S[facility] 4 11:52:46 Problem Notes None recorded. Procedures Surgical History Date Name Laterality Status Provider Name and Address Organization Details Recorded Time 3 Prostate Biopsy completed SANTOSH Barajas [place] - [place] 08/05/2023 12:03:04 Imaging Results Imaging Date Name Status [facility] Details LastModified Time 05/11/2023 US, prostate completed [facility] () [address] [facility], [place], [address], 02/15/2024 11:53:13 Procedure Notes None recorded. Medical Equipment None Reported. Allergies No known drug allergies Medications Name Sig Start Date Stop Date Status Note LastModified by Organization Details LastModified Time losartan 50 mg tablet TAKE 1 TABLET BY MOUTH ONCE DAILY 2023 active Not Available Not Available Not Avai lable amoxicill in 500 mg capsule TAKE 1 CAPSULE BY MOUTH EVERY 8 HOURS FOR 10 DAYS 08/15 completed Not Available Not Available Not Available neomycin- polymyxin -hydrocor t 3.5 mg/mL-10, 000 unit/mL-1 % ear solution INSTILL 3 DROPS INTO AFFECTED EAR 4 TIMES DAILY FOR 10 DAYS 01/28 completed not taking Not Available Not Available Not Available hydrocodo ne 5 mg-acetam inophen 325 mg tablet TAKE 1 TO 2 TABLETS BY MOUTH EVERY 6 HOURS NEEDED 01/28 completed not taking Not Available Not Available Not Available penicilli n V potassium 500 mg tablet Take 1 tablet every 8 hours by oral route for 10 days. 07/31 completed Not Available Not Available Not Available acetamino phen 300 mg-codein e 30 mg tablet TAKE 1 TABLET BY MOUTH EVERY 6 HOURS NEEDED 02/02 completed Not Available Not Available Not Available ofloxacin 0.3 % ear drops INSTILL 5 DROPS INTO AFFECTED EAR ONCE DAILY FOR 7 DAYS 07/31 completed Not Available Not Available Not Available amoxicill in 875 mg tablet TAKE 1 TABLET BY MOUTH TWICE DAILY 08/15 completed Not Available Not Available Not Available tamsulosi n 0.4 mg capsule TAKE 2 CAPSULES BY MOUTH ONCE DAILY active Not Available Not Available No t Available simvastat in 20 mg tablet TAKE 1 TABLET BY MOUTH AT BEDTIME 2023 active Not Available Not Available Not Avai lable erythromy gurmeet 5 mg/gram (0.5 %) eye ointment 01/22 completed complete d Not Available Not Available Not Available oseltamiv ir 75 mg capsule Take 1 capsule twice a day by oral route for 5 days. 12/20 completed Not Available Not Available Not Available losartan 25 mg tablet Take 1 tablet every day by oral route at bedtime. 07/08 completed Not Available Not Available Not Available mupirocin 2 % topical ointment APPLY A SMALL AMOUNT OF OINTMENT TOPICALL Y TO THE AFFECTED AREA THREE TIMES DAILY 07/22 completed Not Available Not Available Not Available finasteri de 5 mg tablet TAKE 1 TABLET BY MOUTH ONCE DAILY TO SHRINK PROSTATE 08/05 completed Not Available Not Available Not Available amoxicill in 875 mg-potass ium clavulana te 125 mg tablet Take 1 tablet every 12 hours by oral route for 7 days. 01/22 completed Not Available Not Available Not Available lactulose 10 gram/15 mL oral solution Take 15 mL twice a day by oral route as needed for 14 days. 07/22 completed Not Available Not Available Not Available Shingrix (PF) 50 mcg/0.5 mL intramusc ular suspensio n, kit 05/25 completed Not Available Not Available Not Available Fluzone High-Dose Quad 2020 (PF) 240 mcg/0.7 mL IM syringe ADM 0.7ML IM UTD 07/22 completed Not Available Not Available Not Available Vitals Date Recorded Body height Provider Name an d Address Organization Details Last Updated DateTime 06/25/2022 167.64 cm Marietta Smith LPN [place] - [place] 2021 15:19:49 Date Recorded Body temperature Provider Name a nd Address Organization Details Last Updated DateTime 06/25/2022 97.3 [degF] Marietta Smith LPN [place] 06/25/2022 15:20:11 Date Recorded Body height Provider Name an d Address Organization Details Last Updated DateTime 06/25/2022 167.64 cm Marietta Smith [facility] 2021 17:16:53 Date Recorded Body temperature Provider Name a nd Address Organization Details Last Updated DateTime 06/25/2022 97.3 [degF] Marietta Smith [employer] [place] - [place] 06/25/2022 17:17:05 Date Recorded Body height Provider Name an d Address Organization Details Last Updated DateTime 07/31/2022 167.64 cm Jeniffer CurranfordSY [facility] 07/31 15:22:57 Date Recorded Body mass index (BMI) Body weight Provider Name and Address Organization Details Last Updated DateTime 07/31/2022 28.4 kg/m2 15246.98 g Jeniffer Vasquez [place] [facility] 07/31/2022 15:26:15 Date Recorded Oxygen saturation Oxygen saturation in Arterial blood by Pulse oximetry Provider Name and Address Organization Details Last Updated DateTime 07/31/2022 96 % 96 % Jeniffer Vasquez SY [facility] 07/31/2022 15:26:25 Date Recorded Heart rate Provider Name an d Address Organization Details Last Updated DateTime 07/31/2022 92 /min Jeniffer SY Vasquez [facility] 07/31 15:26:29 Date Recorded Body temperature Provider Name a nd Address Organization Details Last Updated DateTime 07/31/2022 97.8 [degF] Jeniffer Vasquez SY [facility] 07/31/2022 15:26:35 Date Recorded Body height Provider Name an d Address Organization Details Last Updated DateTime 02/02/2023 167.64 cm Danisha Stephens [facility] 02/02/2023 14:05:37 Date Recorded Body mass index (BMI) Provider Name and Address Organization Details Last Updated DateTime 02/02/2023 28.9 kg/m2 Danisha Stephens [place] 02/02/2023 14:05:45 Date Recorded Body weight Provider Name an d Address Organization Details Last Updated DateTime 02/02/2023 56985.03 g Danisha Stephens [place] - [facility] 02/02/2023 14:05:46 Date Recorded Oxygen saturation Oxygen saturation in Arterial blood by Pulse oximetry Provider Name and Address Organization Details Last Updated DateTime 02/02/2023 97 % 97 % Danishamono Stephens [place] - [facility] 02/02 14:05:47 Date Recorded Heart rate Provider Name an d Address Organization Details Last Updated DateTime 02/02/2023 80 /min Danisha Isaacte [place] - [facility] 02/02/2023 14:05:49 Date Recorded Respiratory rate Provider Name a nd Address Organization Details Last Updated DateTime 02/02/2023 16 /min Danishamono Stephens [place] - [facility] 02/02/2023 14:05:54 Date Recorded Body temperature Provider Name a nd Address Organization Details Last Updated DateTime 02/02/2023 98 [degF] Danisha Stephens [place] 02/02/2023 14:05:58 Date Recorded Body height Provider Name an d Address Organization Details Last Updated DateTime 08/05/2023 167.64 cm Danisha Stephens [place]H [place] 2022 11:42:34 Date Recorded Body mass index (BMI) Body weight Provider Name and Address Organization Details Last Updated DateTime 08/05/2023 29.2 kg/m2 27151.22 g Danisha Stephens [place] 08/05/2023 11:42:41 Date Recorded Oxygen saturation Oxygen saturation in Arterial blood by Pulse oximetry Provider Name and Address Organization Details Last Updated DateTime 08/05/2023 97 % 97 % Danisha Stephens [place] [facility] 08/05/2023 11:42:45 Date Recorded Heart rate Provider Name an d Address Organization Details Last Updated DateTime 08/05/2023 86 /min Danisha Stephens AMIEA [place] - [facility] 2022 11:42:46 Date Recorded Respiratory rate Provider Name a nd Address Organization Details Last Updated DateTime 08/05/2023 16 /min DanishaSANTOSH Lux [place] - [place] 08/05/2023 11:42:51 Date Recorded Body temperature Provider Name a nd Address Organization Details Last Updated DateTime 08/05/2023 97.7 [degF] SANTOSH Barajas [place] 08/05/2023 11:42:54 Date Recorded Body height Provider Name an d Address Organization Details Last Updated DateTime 02/15/2024 167.64 cm DanishaSANTOSH Cordero [place] 2023 11:12:20 Date Recorded Body mass index (BMI) Body weight Provider Name and Address Organization Details Last Updated DateTime 02/15/2024 28.9 kg/m2 34377.03 g DanishaSANTOSH Cordero [place] 02/15/2024 11:12:26 Date Recorded Respiratory rate Oxygen saturation Oxygen saturation in Arterial blood by Pulse oximetry Provider Name and Address Organization Details Last Updated DateTime 02/15/2024 16 /min 97 % 97 % Danishamono Stephens [place] 02/15/2024 11:12:32 Date Recorded Body temperature Provider Name a nd Address Organization Details Last Updated DateTime 02/15/2024 97.5 [degF] DanishaSANTOSH Cordero [place] - [place] 02/15/2024 11:12:35 Date Recorded Heart rate Provider Name an d Address Organization Details Last Updated DateTime 02/15/2024 62 /min Danisha IsaacSANTOSH basilio [place] - [place] 2023 11:15:13 Date Recorded Systolic blood pressure Diastolic blood pressure Provider Name and Address Organization Details Last Updated DateTime 07/31/2022 140 mm[Hg] 78 mm[Hg] Jeniffer [place], [place] - [place] 07/31/2022 15:26:10 Date Recorded Systolic blood pressure Diastolic blood pressure Provider Name and Address Organization Details Last Updated DateTime 02/02/2023 140 mm[Hg] 86 mm[Hg] Danisha Stephens [place] 01/15 14:09:04 Date Recorded Systolic blood pressure Diastolic blood pressure Provider Name and Address Organization Details Last Updated DateTime 08/05/2023 142 mm[Hg] 80 mm[Hg] SANTOSH Barajas [place] - [facility] 08/05/2023 11:47:35 Date Recorded Systolic blood pressure Diastolic blood pressure Provider Name and Address Organization Details Last Updated DateTime 02/15/2024 154 mm[Hg] 70 mm[Hg] SANTOSH Barajas [place] - [facility] 02/15/2024 11:15:10 Date Recorded Systolic blood pressure Diastolic blood pressure Provider Name and Address Organization Details Last Updated DateTime 02/15/2024 142 mm[Hg] 70 mm[Hg] Yancy Zuniga APN, CHEMICAL PRODUCTION MACHINE OPERATOR-C Attn: Accounting,[address] [facility], [place], [address], [facility] 02/15/2024 11:51:33 Social History Question Answer Notes LastModified by Organizat ion Details LastModified Time Tobacco Smoking Status Never Smoker SANTOSH [place] null, [facility] 06/14/2018 14:00:39 Do You Have An Advance Directive? No Information not available 05/25/2019 What Is Your Level Of Alcohol Consumption? Occasional 1 Beer Daily Information not available 02/15/2024 Are You Blind Or Do You Have Difficulty Seeing? No Information not available 01/28/2021 What Is Your Level Of Caffeine Consumption? Heavy Coffee Information not available 06/14/2018 How Much Tobacco Do You Chew? None Information not available 06/14/2018 In The 14 Days Before Symptom Onset, Have You Had Close Contact With A Laboratory-confir med COVID-19 While That Case Was Ill? No Information not available 12/21/2019 In The 14 Days Before Symptom Onset, Have You Had Close Contact With A Person Who Is Under Investigation For COVID-19 While That Person Was Ill? No Information not available 12/21/2019 Have You Been To An Area Known To Be High Risk For COVID-19? No Information not available 12/21/2019 Are You Deaf Or Do You Have Serious Difficulty Hearing? No Information not available 01/28/2021 What Type Of Diet Are You Following? REGULAR Information not available 06/14/2018 Which Illicit Or Recreational Drugs Have You Used? None Information not available 06/14/2018 Do You Or Have You Ever Used E-cigarettes Or Vape? Never Used Electronic Cigarettes Information not available 05/25/2019 Education 12 Information no t available 06/14/2018 What Is Your Occupation? Retired-[employer] 30 Years Information not available 06/14/2018 Are There Any Guns Present In Your Home? Yes Information not available 05/25/2019 Hard Of Hearing Or Deaf In One Or Both Ears? Yes Left-ring ing In Both Ears Information not available 06/14/2018 Legally Blind In One Or Both Eyes? No Information no t available 06/14/2018 Marital Status dong Informatio n not available 06/14/2018 What Was The Date Of Your Most Recent Tobacco Screening? 02/15/2024 Information not available 02/15/2024 What Is Your Relationship Status? Information not available 08/05/2023 Do You Use Your Seat Belt Or Car Seat Routinely? Yes [email or web address] Information not available 07/31/2021 Seat Belts Used Routinely Yes Information not available 05/25/2019 Smoke Alarm In Home Yes Information not available 05/25/2019 Do You Have Smoke And Carbon Monoxide Detectors In Your Home? No Information not available 01/28/2021 At What Age Did You Start Smoking Tobacco? 0 N/a [email or web address] Information not available 08/15/2020 Are You Passively Exposed To Smoke? No Information no t available 01/28/2021 Do You Or Have You Ever Used Smokeless Tobacco? Never Used Smokeless Tobacco Information not available 05/25/2019 How Much Tobacco Do You Smoke? No Information not available 05/25/2019 General Stress Level Medium [email or web address] Information not available 09/10/2020 Do You Feel Stressed (tense, Restless, Nervous, Or Anxious, Or Unable To Sleep At Night)? [id number] [email or web address] Information not available 07/31/2021 Do You Use Any Illicit Or Recreational Drugs? No [email or web address] Information not available 07/31/2021 Do You Use Sunscreen Routinely? No Information not available 05/25/2019 Has Tobacco Cessation Counseling Been Provided? Yes Information not available 08/05/2023 On What Date Was Tobacco Cessation Counseling Provided? 02/15/2024 Information not available 02/15/2024 How Many Years Have You Smoked Tobacco? 0 Information not available 12/21/2019 Do You Or Have You Ever Used Any Other Forms Of Tobacco Or Nicotine? No Information not available 07/31/2021 Sex: Unknown Functional Status Question Answer Note LastModified by Organizat ion Details LastModified Time Are you able to care for yourself? Yes Information not available 01/28/2021 What is your exercise level? None active at home Information not available 06/14/2018 Mental Status None recorded. Family History Relationship Description Onset Age of this Age Resolved Age Notes LastModified by Organization Details LastModified Time Brother Malignant tumor of colon [email or web address] Not available 2017 13:58:36 Father Malignant tumor of colon kyoungma Not available 2017 13:58:36 Father Coronary arterioscler osis kyoungma Not available 2017 13:59:33 Paternal Uncle Malignant tumor of colon kyoungma Not available 2017 13:58:36 Mother Hypertensive disorder kyoungma Not available 2017 13:58:56 Mother Diabetes mellitus kyoungma Not available 2017 13:59:16 Medical History Condition Response Coronary Artery Disease N Other N High Blood Pressure Y Atrial Fibrillation N Kidney or Bladder Problems N Thyroid Problems N GI Problems N Depression N COPD N Blood Clots N Skin Problems N Eating Disorder N Anemia N Heart Attack (MN) N Anxiety Disorder N Diabetes N Muscle, Joint, or Bone Problems N Seizures/Epilepsy N Acid Reflux (GERD) N Cancer N Stroke N Asthma N Allergies N ADHD N Substance Abuse N High Cholesterol N Hepatitis N Liver Disease N Schizophrenia N Headaches N Osteoporosis N Heart Failure N Immunizations Vaccine Type Date Status Note Provider Name and Address Organization Details Recorded Time Tdap 017 completed Yancy Zuniga APN, CHEMICAL PRODUCTION MACHINE OPERATOR-C Attn: Accounting,[address] [place], [address], [facility] 07/31/2022 15:47:51 Pneumococcal conjugate PCV 13 015 completed Yancy Zuniga, ADMINISTRATIVE VOLUNTEER, CHEMICAL PRODUCTION MACHINE OPERATOR-C Attn: Accounting,[address] [facility], [place], [place], [address] [place] [address], [facility] 07/31/2022 15:47:51 pneumococcal polysaccharide PPV23 016 completed Yancy Zuniga, ADMINISTRATIVE VOLUNTEER, CHEMICAL PRODUCTION MACHINE OPERATOR-C Attn: Accounting,[address] [facility], [place], [place], [address] [place] [address], [facility] 07/31/2022 15:47:51 Influenza, high-dose, quadrivalent, PF completed Yancy Zuniga, ADMINISTRATIVE VOLUNTEER, CHEMICAL PRODUCTION MACHINE OPERATOR-C Attn: Accounting,[address] [facility], [place], [place], [address] [place] [address], [facility] 07/31/2022 15:47:51 Influenza, split virus, trivalent, preservative 020 completed Yancy Zuniga, ADMINISTRATIVE VOLUNTEER, CHEMICAL PRODUCTION MACHINE OPERATOR-C Attn: Accounting,[address] [facility], [place], [place], [address] [place] [address], [facility] 07/31/2022 15:47:51 Influenza, high-dose, trivalent, PF 016 completed Yancy Zuniga, ADMINISTRATIVE VOLUNTEER, CHEMICAL PRODUCTION MACHINE OPERATOR-C Attn: Accounting,[address] [facility], [place], [place], [address] [place] [address], [facility] 07/31/2022 15:47:51 zoster recombinant 019 completed Yancy Zuniga, ADMINISTRATIVE VOLUNTEER, CHEMICAL PRODUCTION MACHINE OPERATOR-C Attn: Accounting,[address] [facility], [place], [place], [address] [place] [address], [facility] 07/31/2022 15:47:51 COVID-19, mRNA, LNP-S, PF, 100 mcg/0.5mL dose or 50 mcg/0.25mL dose 021 completed Yancy Zuniga, ADMINISTRATIVE VOLUNTEER, CHEMICAL PRODUCTION MACHINE OPERATOR-C Attn: Accounting,[address] [facility], [place], [place], [address] [place] [address], [facility] 07/31/2022 15:47:51 Influenza, high-dose, trivalent, PF 017 completed Yancy Zuniga, ADMINISTRATIVE VOLUNTEER, CHEMICAL PRODUCTION MACHINE OPERATOR-C Attn: Accounting,[address] [facility], [place], [place], [address] [place] [address], [facility] 07/31/2022 15:47:51 zoster recombinant 019 completed Yancy Zuniga, ADMINISTRATIVE VOLUNTEER, CHEMICAL PRODUCTION MACHINE OPERATOR-C Attn: Accounting,[address] [facility], [place], [place], [address] [place] [address], [facility] 07/31/2022 15:47:51 Influenza, high-dose, trivalent, PF 015 completed Yancy Zuniga, ADMINISTRATIVE VOLUNTEER, CHEMICAL PRODUCTION MACHINE OPERATOR-C Attn: Accounting,[address] [facility], [place], [place], [address] [place] [address], [facility] 07/31/2022 15:47:51 pneumococcal polysaccharide PPV23 017 completed Yancy Zuniga, ADMINISTRATIVE VOLUNTEER, CHEMICAL PRODUCTION MACHINE OPERATOR-C Attn: Accounting,[address] [facility], [place], [place], [address] [place] [address], [facility] 07/31/2022 15:47:51 Influenza, adjuvanted, quadrivalent, PF 021 completed Yancy Zuniga, ADMINISTRATIVE VOLUNTEER, CHEMICAL PRODUCTION MACHINE OPERATOR-C Attn: Accounting,[address] [facility], [place], [place], [address] [place] [address], [facility] 07/31/2022 15:47:51 Influenza, split virus, trivalent, PF 014 completed Yancy Zuniga, ADMINISTRATIVE VOLUNTEER, CHEMICAL PRODUCTION MACHINE OPERATOR-C Attn: Accounting,[address] [facility], [place], [place], [address] [place] [address], [facility] 07/31/2022 15:47:51 Influenza, adjuvanted, trivalent, PF 018 completed Yancy Zuniga, ADMINISTRATIVE VOLUNTEER, CHEMICAL PRODUCTION MACHINE OPERATOR-C Attn: Accounting,[address] [facility], [place], [place], [address] [place] [address], [facility] 07/31/2022 15:47:51 COVID-19, mRNA, LNP-S, PF, 100 mcg/0.5mL dose or 50 mcg/0.25mL dose 021 completed Yancy Zuniga, ADMINISTRATIVE VOLUNTEER, CHEMICAL PRODUCTION MACHINE OPERATOR-C Attn: Accounting,[address] [facility], [place], [place], [address] [place] [address], [facility] 07/31/2022 15:47:51 Influenza, adjuvanted, trivalent, PF 019 completed Yancy Zuniga, ADMINISTRATIVE VOLUNTEER, CHEMICAL PRODUCTION MACHINE OPERATOR-C Attn: Accounting,[address] [facility], [place], [place], [address] [place] [address], [facility] 07/31/2022 15:47:51 Influenza, split virus, trivalent, PF 017 completed Yancy Zuniga, ADMINISTRATIVE VOLUNTEER, CHEMICAL PRODUCTION MACHINE OPERATOR-C Attn: Accounting,[address] [facility], [place], [place], [address] [place] [address], [facility] 07/31/2022 15:47:51 pneumococcal polysaccharide PPV23 019 completed Yancy Zuniga, ADMINISTRATIVE VOLUNTEER, CHEMICAL PRODUCTION MACHINE OPERATOR-C Attn: Accounting,[address] [facility], [place], [place], [address] [place] [address], [facility] 07/31/2022 15:47:51 Influenza, split virus, trivalent, PF 013 completed Yancy Zuniga, ADMINISTRATIVE VOLUNTEER, CHEMICAL PRODUCTION MACHINE OPERATOR-C Attn: Accounting,[address] [facility], [place], [place], [address] [place] [address], [facility] 07/31/2022 15:47:51 Influenza, split virus, trivalent, preservative 014 completed Yancy Zuniga, ADMINISTRATIVE VOLUNTEER, CHEMICAL PRODUCTION MACHINE OPERATOR-C Attn: Accounting,[address] [facility], [place], [place], [address] [place] [address], [facility] 07/31/2022 15:47:51 Pneumococcal conjugate PCV 13 018 completed Yancy Zuniga, ADMINISTRATIVE VOLUNTEER, CHEMICAL PRODUCTION MACHINE OPERATOR-C Attn: Accounting,[address] [facility], [place], [place], [address] [place] [address], [facility] 07/31/2022 15:47:51 RSV, recombinant, protein subunit RSVpreF, adjuvant reconstituted, 0.5 mL, PF 024 completed Yancy Zuniga, ADMINISTRATIVE VOLUNTEER, CHEMICAL PRODUCTION MACHINE OPERATOR-C Attn: Accounting,[address] [facility], [place], [address], [place] [facility] 02/15/2024 11:40:30 Tdap 024 completed Yancy Zuniga APN, FNP-C Attn: Accounting,[address] [facility], [place], [address], [place] [facility] 02/15/2024 11:40:30 Influenza, split virus, quadrivalent, preservative 019 cancelled patient objection Not Available [facility] 09/02/2019 02:38:13 COVID-19, mRNA, LNP-S, PF, 100 mcg/0.5mL dose or 50 mcg/0.25mL dose 022 completed Stefania Velarde MA null, [place] [facility] 08/21/2021 15:21:48 COVID-19, mRNA, LNP-S, PF, 100 mcg/0.5mL dose or 50 mcg/0.25mL dose 022 completed Marietta Smith LPN [place], [place] [facility] 06/25/2022 16:55:59 Influenza, high-dose, quadrivalent, PF 022 completed Marietta Smith LPN [place], [place] [facility] 06/25/2022 17:52:27 Influenza, high-dose, quadrivalent, PF 023 completed Yancy Zuniga APN CHEMICAL PRODUCTION MACHINE OPERATOR-C Attn: Accounting,[address] [facility], [place], [address], [place] [facility] 08/05/2023 18:02:59 Past Encounters Encounter ID Performer Location Encounter Start Date Encounter Closed Date Diagnosis/Indication Diagnosis SNOMED-CT Code Diagnosis ICD10 Code Diagnosis Note [id number] EVELINE Martines (Adult Med) [address] [place] [address] 06/14/2018 13:47:51 06/14/2018 18:20:51 Benign prostatic hyperplasia 683825883 N40.0 reports hx of bx, persistent nocturia 2-3 times at night, discussed medication s to see if that will help him empty bladder fully, also discussed other meds that could help decrease size of prostate. We will get records of prior labs and bx results. Bilateral hearing loss 24841407 H91.93 pt is very hard of hearing, admits he doesn't remember well because he is not sure if he heard things correctly. Also limited by inability to read to augment his hearing loss. We will get prior PCP records to see workup for hearing loss and f/u in 4 weeks to see what else can be done. Body mass index 25-29 - overweight 167038826 Z68.28 He admits to poor diet. follow heart healthy diet and exercise 20min 3 days a week Illiteracy 782211389 Z55 .0 Patient very embarrased about this, but now his can't read well with her cataracts. She is trying to teach him, but he is not patient with it and gets frustrated when he can't remember the sounds of letters. He has never been assessed for any learning disability or dyslexia. Offered him contact info for literacy [place] if he would prefer somone other than his to teach him, he deferred at this time and will try working w/ his again. Essential hypertension 40440223 I10 New dx, recommend starting medication s. discussed risks of uncontroll ed HTN, end organ damage and even . [id number] EVELINE Martines (Adult Med) [address] [place] [address] 07/05/2018 08:33:30 07/15/2018 15:48:06 Essential hypertension 15596280 I10 Reviewed BP goal below 140/89mmHg , discussed low salt diet. Since PICHARDO sxs improved, increase losartan to 50mg. cont to check BP at home, call if persistent ly in yellow range. Benign pro static hyperplasia 263979487 N40.0 reports hx of bx, persistent nocturia 2-3 times at night, discussed medication s to see if that will help him empty bladder fully, also discussed other meds that could help decrease size of prostate. We will get records of prior labs and bx results. Body mass index 25-29 - overweight 407262924 Z68.28 He admits to poor diet. follow heart healthy diet and exercise 20min 3 days a week Adult heal th examination 266691577 Z00.00 Cholesterol screening 27 6256934 Z13.003 [id number] EVELINE Martines (Adult Med) [address] [place] [address] 10/06/2018 11:17:06 10/10/2018 08:52:51 Essential hypertension 35845353 I10 Under 160/90mmHg , meets guideline for pt over age of 60. Pt advised on following low salt diet, working on 5 lbs weight loss through diet and exercise Exposure to varicella 44 0438289 Z20.820 brother had shingles, pt not sure if he ever had chicken pox as a kid, wants to know status and if he can get Shingles vaccine. Hyperlipidemia 64383081 E78.2 Benign pro static hyperplasia with outflow obstruction 912559663 N40.1 Less nocturia, recommend he cont taking medication . [id number] EVELINE Martines (Adult Med) [address] [place] [address] 11/01/2018 09:51:40 11/02/2018 09:11:35 Constipation 08827813 K59.00 discussed diet, increasing fiber. Try prune juice with milk of magnesia until we can get xray results. Benign pro static hyperplasia with outflow obstruction 763873519 N40.1 Continue tamsulosin , he feels it has reduced his frequency Hyperlipidemia 01311331 E78.2 he has deferred cholestero l meds until he discussed numbers w/ . Reviewed chol labs with him and discussed goal numbers. discussed diet, decreasing fried/fatt y foods, red meat & increasing leafy greens [id number] Yancy Zuniga APN, BANDAR [facility] (Adult Med) [address] [facility] [place] [address] 05/25/2019 09:40:56 05/26/2019 11:14:35 Influenza vaccination declined 168085892 Z28.21 will get at outside pharmacyhe likes that they donate a shot to a needy child if he gets one there Essential hypertension 88556971 I10 stable per jnc8 guidelines ; cont on losartan Hyperlipidemia 20020881 E78.2 check lab, needing refill of statin Benign pro static hyperplasia with outflow obstruction 483419527 N40.1 Less nocturia, recommend he cont taking medication . Adult [facility] th examination 269282262 Z00.01 Encouraged patient to eat well balanced meals, live active lifestyle and attend routine vision/den jovany apts. Overweight 319351414 E66 .3 advised low fat, low cholestero l diet, regular exercise and weight reduction. [id number] Yancy Zuniga APN, FNP-C [facility] (Adult Med) [address] [place] [address] 12/21/2019 10:22:45 12/22/2019 06:15:08 Hyperlipidemia 98385031 E78.2 check lab, needing refill of statin Benign pro static hyperplasia with outflow obstruction 153967004 N40.1 Less nocturia, recommend he cont taking medication . Essential hypertension 52811128 I10 stable per jnc8 guidelines ; cont on losartan Overweight 665323900 E66 .3 advised low fat, low cholestero l diet, regular exercise and weight reduction. [id number] Yancy Zuniga APN, FNP-C [facility] (Adult Med) [address] [place] [address] 04/01/2020 08:51:53 04/02/2020 21:18:28 Lesion of skin of face 8101889785 06 L98.9 non healing lesion to right side of nose, has had for over a year, will rx abx ointment and dwp to also refer to derm for further evaluation and treatment [id number] Yancy Zuniga APN, FNP-C [facility] (Adult Med) [address] [place] [address] 07/22/2020 10:11:58 07/23/2020 09:40:41 Acute otitis media 0871510 H65.01 dwp likely AOM, will treat with abx, rto if no improvemen t [id number] Yancy Zuniga APN, FNP-C [facility] (Adult Med) [address] [place] [address] 08/15/2020 10:22:59 08/15/2020 13:46:59 Essential hypertension 51097515 I10 stable per jnc8 guidelines ; cont on losartan Hyperlipidemia 31254072 E78.2 cont statin Perforatio n of tympanic membrane 38731047 H72.91 dwp cont abx drops, will send refill, if does not close on own, will refer to ent [id number] Yancy Zuniga APN, FNP-C [facility] (Adult Med) [address] [place] [address] 09/10/2020 11:49:53 09/11/2020 12:56:42 Essential hypertension 36211535 I10 stable per jnc8 guidelines ; cont on losartan Perforatio n of tympanic membrane 71351833 H72.91 will rx augmentin, dwp cont abx drops, will send refill, if does not close on own, will refer to ent [id number] Yancy Zuniga APN, FNP-C [facility] (Adult Med) [address] [place] [address] 01/28/2021 14:53:43 01/31/2021 12:49:20 Essential hypertension 02034987 I10 stable per jnc8 guidelines ; cont on losartan Hyperlipidemia 07009258 E78.2 cont statin Overweight 654839938 E66 .3 advised low fat, low cholestero l diet, regular exercise and weight reduction. Benign pro static hyperplasia with outflow obstruction 814972670 N40.1 Less nocturia, recommend he cont taking medication . Endocrine/ metabolic screening 981777474 Z13.228 Prostate s pecific antigen above reference range 797628688 R97.20 high in past, will check level [id number] Yancy Zuniga APN, FNP-C [facility] (Adult Med) [address] [place] [address] 07/31/2021 14:16:42 08/13/2021 08:15:18 Essential hypertension 24953808 I10 stable per jnc8 guidelines ; cont on losartan Hyperlipidemia 32939142 E78.2 cont statin Overweight 832034457 E66 .3 advised low fat, low cholestero l diet, regular exercise and weight reduction. Benign pro static hyperplasia with outflow obstruction 318826567 N40.1 Less nocturia, recommend he cont taking medication . [id number] [facility] (Adult Med) [address] [place] [address] 08/21/2021 11:25:24 08/22/2021 09:42:09 Administration of SARS-CoV-2 mRNA vaccine 1316912768 Z23 [id number] Yancycatarina Zuniga APN, FNP-C [facility] (Adult Med) [address] [place] [address] 2022 14:58:28 01/30/2022 13:45:12 Essential hypertension 44624884 I10 stable per jnc8 guidelines ; cont on losartan Hyperlipidemia 55146052 E78.2 cont statin Overweight 601464283 E66 .3 advised low fat, low cholestero l diet, regular exercise and weight reduction. Benign pro static hyperplasia with outflow obstruction 636776989 N40.1 Less nocturia, recommend he cont taking medication . Endocrine/ metabolic screening 772783854 Z13.820 [id number] VANCE Morales (Adult Med) [address] [place] [address] 06/25/2022 13:37:15 06/26/2022 16:21:30 Administration of SARS-CoV-2 mRNA vaccine 1572216208 Z23 Administra tion of influenza vaccine 52994014 Z23 [id number] VANCE [facility] (Adult Med) [address] [place] [address] 06/25/2022 17:06:41 06/26/2022 16:20:29 Administration of influenza vaccine 67045741 Z23 [id number] Yancy Zuniga APN, FNP-C [facility] (Adult Med) [address] [place] [address] 07/31/2022 15:06:43 08/03/2022 14:04:46 Essential hypertension 10545405 I10 stable per jnc8 guidelines ; cont on losartan Hyperlipidemia 87098344 E78.2 cont statin Overweight 901955791 E66 .3 advised low fat, low cholestero l diet, regular exercise and weight reduction. Benign pro static hyperplasia with outflow obstruction 736234129 N40.1 Less nocturia, recommend he cont taking medication . Prostate s pecific antigen above reference range 717741299 R97.20 high in past, increased again on this last lab, declines referral [id number] Yancy Zuniga APN, FNP-C [facility] (Adult Med) [address] [place] [address] 02/02/2023 13:53:00 02/03/2023 12:25:54 Essential hypertension 73032893 I10 stable per jnc8 guidelines ; cont on losartanDW P non compliance , increased risk of heart attack, stroke, Hyperlipidemia 18697591 E78.2 cont statin Benign pro static hyperplasia with outflow obstruction 932950211 N40.1 Less nocturia, recommend he cont taking medication . Prostate s pecific antigen above reference range 303344060 R97.20 high in past, increased again on this last lab, declines referral Overweight 783928789 E66 .3 advised low fat, low cholestero l diet, regular exercise and weight reduction. [id number] Yancy Zuniga APN, BANDAR [facility] (Adult Med) [address] [place] [address] 08/05/2023 11:27:33 08/06/2023 14:11:54 Essential hypertension 67491556 I10 stable per jnc8 guidelines ; cont on losartan- did not take todayDWP non compliance , increased risk of heart attack, stroke, Hyperlipidemia 01341838 E78.2 cont statin Benign pro static hyperplasia with outflow obstruction 241560277 N40.1 Less nocturia, recommend he cont taking medication . Overweight 863794821 E66 .3 advised low fat, low cholestero l diet, regular exercise and weight reduction. Administra tion of influenza vaccine 60715715 Z23 [id number] Yancy Zuniga APN, BANDAR [facility] (Adult Med) [address] [place] [address] 02/15/2024 10:47:28 02/21/2024 15:40:48 Essential hypertension 43386795 I10 stable per jnc8 guidelines ; cont on losartanDW P non compliance , increased risk of heart attack, stroke, Hyperlipidemia 10914909 E78.2 cont statin Benign pro static hyperplasia with outflow obstruction 619044473 N40.1 Less nocturia, recommend he cont taking medication . Overweight 468895177 E66 .3 advised low fat, low cholestero l diet, regular exercise and weight reduction. 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[place], not helping much Health Concerns Section Related Observation LastModified by Organization Detai ls LastModified Time None Recorded Concern Status LastModified by Organization Details LastModified Time None Recorded Advance Directives Directive N: Payers Encounter Date Sequence Insurance Name Policy Number Policy Cohn Covered Member ID Cohn Member ID Guarantor Name 06/25/2022 1 [employer] (MEDICARE REPLACEMENT/A DVANTAGE - HMO) [id number] Pasha Hamilton [id number] Pasha Hamilton 07/31/2022 1 [employer] (MEDICARE REPLACEMENT/A DVANTAGE - HMO) [id number] Pasha Hamilton [id number] Pasha Hamilton 02/02/2023 1 [employer] (MEDICARE REPLACEMENT/A DVANTAGE - HMO) [id number] Pasah Hamilton [id number] Pasha Hamilton 08/05/2023 1 [employer] (MEDICARE REPLACEMENT/A DVANTAGE - HMO) [id number] Pasha Hamilton [id number] Pasha Hamitlon 02/15/2024 1 [employer] (MEDICARE REPLACEMENT/A DVANTAGE - HMO) [id number] Pasha Hamilton [id number] Pasha Hamilton Notes Date Note Type Note Provider Name and Address Organization Details Recorded Time 07/31/2022 text/html Hypertension F/UReported bypatient.Associat ed Symptoms:no dizziness; no lightheadedness; no chest pain; no shortness of breath; no palpitations; no edema; no calf pain with exertion; chest pain due to heart burn Lifestyle:limiting /avoiding salt;not exercising regularly Medications:taking medications as directed; no side effects from medicationNotes:fo rgot med today urinary frequency, no longer getting up 4-5 times a night, not sure if med is helping, no side effects such as dizziness or dry mouth. Yancy Zuniga APN, CHEMICAL PRODUCTION MACHINE OPERATOR-C Attn: Accounting,[address] [facility], [place], [place], [address], [facility] 07/31/2022 17:17:25 02/02/2023 text/html Hypertension F/UReported bypatient.Associat ed Symptoms:no dizziness; no lightheadedness; no chest pain; no shortness of breath; no palpitations; no edema; no calf pain with exertion; chest pain due to heart burn Lifestyle:limiting /avoiding salt;not exercising regularly Medications:no side effects from medication;not taking medications as directed; skips if his bp reading is green Notes:forgo t med today urinary-no longer getting up 4-5 times a night, no side effects such as dizziness or dry mouth. Yancy Zuniga APN, FNP-C Attn: Accounting,[address] [facility], [place], [address], [facility] 02/02/2023 17:55:10 08/05/2023 text/html Hypertension F/UReported bypatient.Associat ed Symptoms:no dizziness; no lightheadedness; no chest pain; no shortness of breath; no palpitations; no edema; no calf pain with exertion; chest pain due to heart burn Lifestyle:limiting /avoiding salt;not exercising regularly Medications:no side effects from medication;not taking medications as directed; skips if his bp reading is green Notes:forgo t med today urinary-no longer getting up 4-5 times a night, no side effects such as dizziness or dry mouth. Yancy Zuniga APN, FNP-C Attn: Accounting,[address] [facility], [place], [address], [facility] 08/05/2023 18:04:00 02/15/2024 text/html Hypertension F/UReported bypatient.Associat ed Symptoms:no dizziness; no lightheadedness; no chest pain; no shortness of breath; no palpitations; no edema; no calf pain with exertion; chest pain due to heart burn Lifestyle:limiting /avoiding salt;not exercising regularly Medications:no side effects from medication;not taking medications as directed; skips if his bp reading is green Notes:forgo t med today urinary-no longer getting up 4-5 times a night, no side effects such as dizziness or dry mouth. currently having back pain but he has been bending over more often working outside. Yancy Zuniga APN, FNP-Christine Attn: Accounting,[address] [facility], [place], [address], [facility] 02/15/2024 11:58:06
== END 2024-09-07 11:44 | disposition home or self-care (01) ==
LOC: CHSLAB 11:47
PROVIDERS: PCP Nurse Practitioner Family; Visit Provider Urology
DX: R97.20 Elevated prostate specific antigen [PSA] (principal); N40.1 Benign prostatic hyperplasia with lower urinary tract symptoms
CPT/HCPCS: 36415; 80053; 84153

== ENCOUNTER 2025-03-07 10:40 | Outpatient (CLI) | payer MEDICARE, SELFPAY ==
--- OUTSIDE RECORDS SUMMARY | 2025-03-07 10:50 | XMS_ITS | Clinical Summary ---
Author Organization [facility] Address [address] [place] [address] Care Team Providers Care Stave Inspector Name Role Phone Jj, Yancy ZOYA Primary Care Provider [phone] Allergies No known active allergies Medications simvastatin 20 MG tablet Take 20 mg by mouth nightly at bedtime. Active tamsulosin 0.4 MG Cap Take 0.4 mg by mouth daily. Active losartan 50 MG tabletIndicatio ns:takes PRN Take 50 mg by mouth daily. Indications: takes PRN Active HYDROcodone-fredi taminophen 5-325 MG tabletIndicatio ns:Acute Pain < 7 Day Supply Take 1-2 tablets by mouth every 6 (six) hours as needed. 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 Pulse 78 07/24/2020 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 Temperature 36.6 C (97.8 F) 07/24/2020 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 Respiratory Rate 18 07/24/2020 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 Oxygen Saturation 98% 07/24/2020 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 Inhaled Oxygen Concentration - - Weight 81.6 kg (180 lb) 07/24/2020 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 Height 167.6 cm (5' 6) 07/24/2020 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 Body Mass Index 29.05 07/24/2020 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 Plan of Treatment Health Maintenance Due Date Last Done Comments Colorectal Cancer Screening Colonoscopy (10 Years) 1950 Hepatitis C 01/30/1968 DTaP, Tdap and Td Vaccines ( 1 - Tdap) 1969 Pneumococcal Vaccine: 50+ Ye ars (1 of 1 - PCV) 01/30/2000 Zoster Vaccines (1 of 2) 01/30/2000 Annual Medicare Wellness Visit 2015 COVID-19 Vaccine (1 - 2023-2 5 season) 2024 RSV Immunization or 60+ Years (1 - 1-dose 75+ series) 2025 Meningococcal B Vaccine Aged Out No l onger eligible based on patient's age to complete this topic Meningococcal Vaccine Aged Out No alexandro rikki eligible based on patient's age to complete this topic RSV Immunizations Under 20 Months Aged Out No longer eligible based on patient's age to complete this topic Insurance [facility] Care Teams Stave Inspector Relationship Specialty Start Date End Date Yancy Gardner APNP PCP - General NURSE PRACTITIONER 07/24/20
--- OUTSIDE RECORDS SUMMARY | 2025-03-07 10:50 | XMS_ITS | Clinical Summary ---
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 Name Role Phone Tamera Parr Primary Care Provider [phone] Social History Tobacco Use Types Packs/Day Years Used Date Smoking Tobacco: Never Assessed Sex and Gender Information Value Date Recorded Sex Assigned at Not on file Legal Sex Male 10:18 AM CDT Gender Identity Not on file Sexual Orientation Not on file Plan of Treatment Health Maintenance Due Date Last Done Comments Hepatitis C Virus (HCV) Screening 1950 Cologuard 1995 Colonoscopy 1995 Colorectal Cancer Screening 1995 Immunochemical Fecal Occult Blood 1995 Zoster Immunization (1 of 2) 01/30/2000 SARS-COV-2 Immunization ( season) 2024 06/25/2022, 08/21/2021, 11/22/2020, Additional history exists Respiratory Syncytial Virus (RSV) Immunization (Adult) (1 - 1-dose 75+ series) 2025 Influenza Immunization (#1) 2025 10/0 10/2017, 07/19/2017, 07/16/2017, Additional history exists Pneumococcal Immunization (50+ years) Completed 07/16/2017, 07/15/2016, 04/18/2015 Pneumococcal Immunization Combined Discontinued 07/16/2017, 07/15/2016, 04/18/2015 DTaP/Tdap/Td Immunization Discontinued 07/27/2017 TdaP Immunization Completed 07/27/2017 Hepatitis B Immunization Aged Out No longer eligible based on patient's age to complete this topic Human Papillomavirus (HPV) Immunization Aged Out No longer eligible based on patient's age to complete this topic Meningococcal Immunization (ACWY) Aged Out No longer eligible based on patient's age to complete this topic Rotavirus Immunization Aged Out No lo nger eligible based on patient's age to complete this topic Insurance [facility] Care 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
[2025-03-07 11:37] LABS: Alanine Aminotransferase 18 U/L (6-50); Albumin Level 3.9 g/dL (3.5-5.1); Alkaline Phosphatase 45 U/L (38-126); Anion Gap 4 mmol/L (4-12); Aspartate Amino Transferase 23 U/L (17-59); Bilirubin,Total 1.1 mg/dL (0.2-1.3); Blood Urea Nitrogen 18 mg/dL (9-20); Calcium 8.8 mg/dL (8.4-10.2); Carbon Dioxide 27 mmol/L (22-30); Chloride 107 mmol/L (98-107); Estimated Glomerular Filt Rate > 60; Glucose 120 mg/dL (65-110); Osmolality Calculated 288 mOsm/kg (285-295); Potassium 4.6 mmol/L (3.4-5.0); Sodium 138 mmol/L (137-145); Total Protein 6.6 g/dL (6.3-8.2)
[2025-03-07 12:07] LABS: Prostate Specific Antigen 10.8 ng/mL (< OR = 4.0)
== END 2025-03-07 10:41 | disposition home or self-care (01) ==
LOC: CHSLAB 10:42
PROVIDERS: PCP Nurse Practitioner Family; Visit Provider Urology
DX: R97.20 Elevated prostate specific antigen [PSA] (principal); N40.1 Benign prostatic hyperplasia with lower urinary tract symptoms
CPT/HCPCS: 36415; 80053; 84153